=== PATIENT | male | born 2000 | race Caucasian/White ===

== ENCOUNTER 2020-03-15 18:21 | Emergency (ER) | payer OTHER ==
[2020-03-15] MEDS ORDERED: ONDANSETRON ODT 4 MG TAB (6 TAB/ER DISP) PO PRN (20:09)
[2020-03-15] MEDS ORDERED: FAMOTIDINE 20 MG TABLET PO ONE (20:10)
--- NOTE | 2020-03-15 20:12 | ER Document Report ---
HPI - HPI Time Seen by Provider: 03/15/20 19:09 Pain Level: Denies Context: Patient is a 20-year-old male with a history of GERD who presents emergency department with a chief complaint of vomiting. Patient states that he had been drinking tonight. Patient states that he drank 4 beers and then he had a shot of liquor. After the shot of liquor, the patient ended up vomiting. Patient states that he had specks of blood in his vomit. He got scared and went to the emergency department. Patient has not vomited since that episode. He denies any abdominal pain. States he feels better after vomiting. Patient states that he drinks about 4 beers a day normally. Denies melena stools. - CONSTITUTIONAL Constitutional: DENIES: Fever, Chills - EENT EENT: DENIES: Sore Throat - CARDIOVASCULAR Cardiovascular: DENIES: Chest pain - RESPIRATORY Respiratory: DENIES: Trouble Breathing, Coughing - GASTROINTESTINAL Gastrointestinal: REPORTS: Patient vomiting. DENIES: Abdominal Pain, Nausea - DERM Skin Color: Normal Skin Problems: None Past Medical History - General Information source: Patient - Social History Smoking Status: Former Smoker Chew tobacco use (# tins/day): No Frequency of alcohol use: Heavy Drug Abuse: None Family History: Reviewed & Not Pertinent Vertical Provider Document - CONSTITUTIONAL Agree With Documented VS: Yes Exam Limitations: No Limitations General Appearance: No Apparent Distress - HEENT HEENT: Atraumatic, Normocephalic, PERRLA - NECK Neck: Normal Inspection - RESPIRATORY Respiratory: Breath Sounds Normal, No Respiratory Distress - CARDIOVASCULAR Cardiovascular: Regular Rate, Regular Rhythm Pulses: Normal: Radial - GI/ABDOMEN Gastrointestinal: Abdomen Soft, Abdomen Non-Tender - MUSCULOSKELETAL/EXTREMETIES Musculoskeletal/Extremeties: FROM - NEURO Level of Consciousness: Awake, Alert, Appropriate Motor/Sensory: No Motor Deficit, No Sensory Deficit - DERM Integumentary: Warm, Dry, No Rash Course - Re-evaluation Re-evalutation: 03/15/20 I had a lengthy conversation with the patient in regards to his alcohol use. A dvised him that he slowly cut back on his drinking and not quit cold turkey. Will also start him on Pepcid. He is to follow-up with his regular doctor. He is in agreement with this plan. I have a low suspicion for a GI bleed, or any life-threatening etiology at this time. I suspect this is due to him drinking beer before liquor. Abdomen is soft and nontender. Vital signs are stable. Patient able to tolerate oral fluids. Follow-up precautions were given. Verbal discharge instructions were given to the patient. They verbalized understanding. They are stable for discharge. - Vital Signs Vital signs: Temp Pulse Resp BP Pulse Ox 98.5 F 88 18 153/87 H 100 03/15/20 19:02 03/15/20 19:02 03/15/20 19:02 03/15/20 19:02 03/15/20 19:02 Discharge - Discharge Clinical Impression: Alcohol abuse GERD (gastroesophageal reflux disease) Qualifiers: Esophagitis presence: esophagitis presence not specified Qualified Code(s): K21.9 - Gastro-esophageal reflux disease without esophagitis Vomiting Qualifiers: Vomiting type: unspecified Vomiting Intractability: unspecified Nausea presence: without nausea Qualified Code(s): R11.11 - Vomiting without nausea Condition: Stable Disposition: HOME, SELF-CARE Instructions: Vomiting ([facility]) Additional Instructions: You were seen today in the emergency department for vomiting with specks of blood. You are being started on Pepcid. Be sure you take Pepcid as prescribed on a regular basis. Follow-up with your regular doctor in regards to this visit. Please cut back on your alcohol use as discussed. Stop vaping as discussed. You can take 1 tablet of the Zofran every 4-6 hours as needed for nausea or vomiting. Prescriptions: Famotidine [Pepcid 20 mg Tablet] 20 mg PO BID #60 tablet
[2020-03-15 20:21] VITALS: BP 147/82
== END 2020-03-15 20:26 | disposition home or self-care (01) ==
LOC: ER 18:21
DX: F10.10 Alcohol abuse, uncomplicated (principal); K21.9 Gastro-esophageal reflux disease without esophagitis; R11.11 Vomiting without nausea
CPT/HCPCS: 99283